=== PATIENT | female | born 1960 | race Caucasian/White ===

== ENCOUNTER 2018-03-27 10:16 | Day surgery (SDC) | payer OTHER ==
[~2018-03-27] VITALS: Ht 162.6 cm; Wt 66.0 kg
[2018-03-27] VITALS (9 sets, daily range): BP systolic 109–124; BP diastolic 49–82
--- NOTE | 2018-03-27 06:54 | Anethesia Preoperative Eval ---
Anesthesia Pre-op PMH/ROS General Date of Evaluation: Mar 27, 2018 Time of Evaluation: 06:51 Anesthesiologist: ashley ASA Score: ASA 2 Mallampati Score Class I : Soft palate, uvula, fauces, pillars visible Class II: Soft palate, uvula, fauces visible Class III: Soft palate, base of uvula visible Class IV: Only hard plate visible Mallampati Classification: Class II Surgeon: jose Diagnosis: abdominal pain, gerd Surgical Procedure: egd/colonoscopy Anesthesia History: none Social History: current smoker, alcohol use Family History: no anesthesia problems Allergies: Coded Allergies: No Known Allergies (Unverified , 03/27/18) Medications: see eMAR Patient NPO?: Yes Past Medical History Cardiovascular: Reports: other - hypercholesterolemia HEENT: Reports: other - decreased visual acuity, blepharoplasty PSxH Narrative: bunionectoy, breast sx, blepharoplasty Anesthesia Pre-op Phys. Exam Physician Exam Constitutional: NAD Neurologic: CN 2-12 intact Cardiovascular: RRR Respiratory: CTA Gastrointestinal: S/NT/ND Airway Exam Mallampati Score: Class II MO: full Neck: flexible TMD: 2fb ROM: full Anesthesia Pre-op A/P Risk Assessment & Plan Assessment: asa2 Plan: mac Status Change Before Surgery: No Pre-Antibiotics Drug: Erin Cm MD Mar 27, 2018 06:54
[~2018-03-27 10:16] MED LIST: ATORVASTATIN CA20 MG ORAL; Atropine Inj 1mg/10ml Syr IV PRN; DiphenhydrAMINE 50mg/ml Inj IVP PRN; Midazolam 2mg/2ml Inj IVP PRN; [UNRECOGNIZED DRUG - OTHER] PO; cholesterol pill PO; fentaNYL 100 mcg/2 mL IV PRN
[2018-03-27] MEDS ORDERED: VITAMIN D1000 UNI1 ORAL (10:54)
[2018-03-27] MEDS ORDERED: TURMERIC 500 M1 EAC1 PO (10:54)
--- NOTE | 2018-03-27 11:58 | Pre-Procedure Note/Attestation ---
Pre-Procedure Note/Attestation Complete Prior to Procedure Planned Procedure: not applicable Procedure Narrative: EGD and colonoscopy Indications for Procedure Pre-Operative Diagnosis: abd pain, Anemia Attestation I attest that I discussed the nature of the procedure; its benefits; risks and complications; and alternatives (and the risks and benefits of such alternatives ), prior to the procedure, with the patient (or the patient's legal telemarketing representative). I attest that, if there was a reasonable possibility of needing a blood transfusion, the patient (or the patient's legal telemarketing representative) was given the [facility] standardized written summary, pursuant to the Eduardo Issac Blood Safety Act ([place] Health and Safety Code # 1645, as amended). I attest that I re-evaluated the patient just prior to the surgery and that there has been no change in the patient's H&P, except as documented below: Sancho Sevilla MD Mar 27, 2018 11:58
--- NOTE | 2018-03-27 11:59 | Short Stay Surgery H&P ---
History of Present Illness History of Present Illness Chief Complaint abd pain HPI Aylin Yajaira is a 57 year old female who was admitted on for Abdominal Pain, Gerd Patient History Allergies: Coded Allergies: No Known Allergies (Unverified , 03/27/18) PAST MEDICAL HISTORY: (1) Abdominal pain Medication History Scheduled Atorvastatin Calcium* (Atorvastatin Calcium*), 20 MG ORAL DAILY, (Reported) Cholecalciferol (Vitamin D3)* (Vitamin D*), 2,000 UNITS ORAL DAILY, (Reported) Turmeric/Turmeric Root Extract (Turmeric 500 mg Capsule), 1 EACH PO DAILY, ( Reported) [livial], 1 TAB PO HS, (Reported) Review of Systems Cardiovascular: Reports: no symptoms Respiratory: Reports: no symptoms Skeletal: Reports: no symptoms Gastrointestinal: Reports: gastro esophageal reflux disease Genitourinary: Reports: no symptoms Neurologic: Reports: no symptoms Endocrine: Reports: no symptoms Hematologic: Reports: no symptoms Physical Exam Vital Signs Last Vital Signs Date Time Temp Pulse Resp B/P (MAP) Pulse Ox O2 Delivery O2 Flow Rate FiO2 03/27/18 11:00 98.6 54 18 116/68 100 Room Air Skin: normal HENT: normal Heart: normal Lungs: normal Abdomen: normal Extremities: normal Plan Plan of Care eed and colonoscopy Attestation Are the patient's medical conditions optimized for surgery? Attestation Response: yes Sancho Sevilla MD Mar 27, 2018 11:59
[2018-03-27] MEDS ORDERED: Propofol 200mg/20ml IV ONE (13:00)
[2018-03-27] MEDS ORDERED: Lidocaine 1% MPF 10mg/ml 5ml ONE (13:00)
--- NOTE | 2018-03-27 13:30 | Endoscopy Procedure Note ---
Endoscopy Procedure Note General Indication for Procedure: colitis, abd pain Procedures Performed: EGD, colonoscopy Operative Findings/Diagnosis: gastritis, divrticulosis Specimen: yes Pt Tolerated Procedure Well: Yes Estimated Blood Loss: none Anesthesia Anesthesiologist: ashley Anesthesia: MAC Inserted Devices Implant(s) used?: No Quality Quality of Bowel Preparation: Good Did scope reach the cecum?: Yes Was there any complications?: No GI Core Measures 50 yrs or older w/o bx or poly: No 10yrs. F/U not recommended: Yes If not recommended, why?: Above average risk 10 yrs. F/U needed: Yes 18 years or older w/prev. colo: Yes <3yrs. since last colonoscopy: No Sancho Sevilla MD Mar 27, 2018 13:29
--- NOTE | 2018-03-27 15:22 | Immediate Post-Op Evaluation ---
Immediate Post-Op Evalulation Immediate Post-Op Evalulation Procedure: egd/colonoscopy/bx Date of Evaluation: Mar 27, 2018 Time of Evaluation: 13:47 IV Fluids: 350ml 0.9ns Blood Products: none Estimated Blood Loss: negligible Blood Pressure Systolic: 164 Blood Pressure Diastolic: 82 Pulse Rate: 65 Respiratory Rate: 18 O2 Sat by Pulse Oximetry: 99 Temperature (Fahrenheit): 98.2 Pain Score (1-10): 0 Nausea: No Vomiting: No Complications none Patient Status: awake, reacts, patent Hydration Status: adequate Drug: Erin Cm MD Mar 27, 2018 15:22
--- NOTE | 2018-03-27 15:24 | 48 Hour Post Anesthesia Eval ---
Post Anesthesia Evaluation Procedure: egd/colonoscopy/bx Date of Evaluation: Mar 27, 2018 Time of Evaluation: 13:49 Blood Pressure Systolic: 119 0: 49 Pulse Rate: 65 Respiratory Rate: 18 Temperature (Fahrenheit): 98.2 O2 Sat by Pulse Oximetry: 99 Airway: patent Nausea: No Vomiting: No Pain Intensity: 0 Hydration Status: adequate Cardiopulmonary Status: stable Mental Status/LOC: patient returned to baseline Post-Anesthesia Complications: none Follow-up care needed: N/A Erin Ramos MD Mar 27, 2018 15:24
--- NOTE | 2018-03-27 20:00 | Procedure Note ---
DATE OF PROCEDURE: 03/27/2018 SURGEON: Sancho Sevilla M.D. ANESTHESIOLOGIST: Dr. Bill. REFERRING PHYSICIAN: Ashish Jennings M.D. PROCEDURE: Upper endoscopy with biopsy and colonoscopy with biopsy and snare polypectomy. ANESTHESIA: Per Dr. Bill. INSTRUMENT: Olympus adult flexible upper endoscope and colonoscope. INDICATION: CT evidence of colitis and questionable wall thickening, abdominal pain. The procedure, risks, benefits, and possible consequences, including hemorrhage, aspiration, perforation and infection, and alternative treatments, were explained to the patient/legal guardian by Dr. Sancho Sevilla and the patient/legal guardian understood and accepted these risks. DESCRIPTION OF PROCEDURE: After informed consent was obtained and the patient was adequately sedated, Olympus upper endoscope was advanced from the mouth to the second portion of duodenum and retroflexion was performed in the stomach. The patient had evidence of diffuse gastritis. Random biopsy from antrum and body was obtained to rule out H. pylori infection. The patient also had a small hiatal hernia. No evidence of any esophagitis. No esophageal mass. No gastric mass. At this time, the upper endoscope was retrieved. The patient was turned over for colonoscopy. First, rectal exam was performed which was positive for internal hemorrhoids. Then, the scope was advanced from the rectum into the cecum. Quality of prep overall was good except for the cecum which was covered full of stool. We could not examine the cecum very well, but the rest of the exam . The patient had 2 polyps, 1 sessile polyp in the transverse colon which measured roughly about 5 mm and removed with snare polypectomy technique. There was a very diminutive polyp also in the transverse colon, removed with the cold biopsy forceps technique. The patient had evidence of severe diverticulosis in the left colon. No obvious mass was seen. Retroflexion of the rectum showed evidence of internal hemorrhoids. SUMMMARY OF FINDINGS: 1. Diffuse gastritis, status post biopsy. 2. Small hiatal hernia. 3. Two colonic polyps removed, see above for details. 4. Diverticulosis. 5. Internal hemorrhoids. RECOMMENDATIONS: 1. Follow up biopsy results and treat accordingly. 2. We recommend repeat colonoscopy in 5 years. I want to thank Dr. Ashish Jennings for this kind referral. Sancho Hiro Sevilla DR: Pedro JOB#: [id number] CC: Ashish Jennings M.D.; Fax#: [phone]
== END 2018-03-27 14:40 | disposition home or self-care (01) ==
LOC: GAS 10:16
DX: K29.50 Unspecified chronic gastritis without bleeding (principal); K44.9 Diaphragmatic hernia without obstruction or gangrene; B96.81 Helicobacter pylori [H. pylori] as the cause of diseases classified elsewhere; K63.5 Polyp of colon; K64.8 Other hemorrhoids; K57.30 Diverticulosis of large intestine without perforation or abscess without bleeding; E78.00 Pure hypercholesterolemia, unspecified; F17.200 Nicotine dependence, unspecified, uncomplicated
CPT/HCPCS: 43239; 45380; 45385; 93005; J2704; 94003; 94150